=== PATIENT | male | born 1960 | race Caucasian/White ===

== ENCOUNTER → 2018-09-09 11:44 | Outpatient (CLI) | payer OTHER, SELFPAY ==
--- NOTE | 2018-09-09 | DI.RAD.S_ITS ---
PROCEDURE: XR HAND RT MIN 3V INDICATIONS: RT HAND PAIN TECHNIQUE: 3 views of the hand(s) acquired. COMPARISON: None. FINDINGS: Bones: No fractures or dislocations. Carpal bones are normally aligned. No suspicious bony lesions. Diffuse interphalangeal joint degeneration. There is first, second and third mild MCP joint degeneration. Marginal lucencies present at the DIP joints of the index, middle and little finger, as well as the first MCP joint. Possible chondrocalcinosis versus tiny loose body projecting in the ulnocarpal compartment. Soft tissues: No suspicious soft tissue calcifications. IMPRESSION: Diffuse right hand joint degeneration. Mild degenerative changes at the first-third MCP joints Marginal lucencies involving the DIP joints, possibly age-indeterminate erosions versus cystic change. Ulnocarpal compartment chondrocalcinosis versus tiny loose body. Dictated by: Rico Liu M.D. on 09/09/2018 at 14:13 Approved by: Rico Liu M.D. on 09/09/2018 at 14:17
--- NOTE | 2018-09-09 11:50 | DI.RAD.S_ITS ---
PROCEDURE: XR SHOULDER LT MIN 2V INDICATIONS: joint pain TECHNIQUE: 3 views of the shoulder were acquired. COMPARISON: None. FINDINGS: Bones: No fractures or dislocations. No suspicious bony lesions. Mild degenerative changes present at the glenohumeral and acromioclavicular joints. Visualized ribs appear intact. Soft tissues: No suspicious soft tissue calcifications. IMPRESSION: Mild degenerative changes. Dictated by: Katherine Solano M.D. on 09/09/2018 at 14:20 Approved by: Katherine Solano M.D. on 09/09/2018 at 14:20
== END ==
PROVIDERS: PCP Student in an Organized Health Care Education/Training Program; Visit Provider Student in an Organized Health Care Education/Training Program
DX: M79.641 Pain in right hand (principal); M19.041 Primary osteoarthritis, right hand; M25.512 Pain in left shoulder; M19.012 Primary osteoarthritis, left shoulder
CPT/HCPCS: 73030; 73130

== ENCOUNTER → 2019-05-22 12:20 | Outpatient (CLI) | payer OTHER, SELFPAY ==
--- NOTE | 2019-05-22 | DI.RAD.S_ITS ---
PROCEDURE: XR LUMBAR SPINE 2-3V INDICATIONS: BACK PAIN,SPRAIN IN HIP TECHNIQUE: 2 views of the lumbar spine were acquired. COMPARISON: None. FINDINGS: Bones: No fracture or focal osseous destruction. Multilevel degenerative endplate sclerosis and spurring. Diffuse facet arthropathy. Straightening of the normal lordotic curvature. Moderate narrowing of the L1-L2, L2-L3, L3-L4 disc spaces. Mild dextrocurvature centered at T12. Soft tissues: Overlying bowel gas pattern is normal. No suspicious soft tissue calcifications. IMPRESSION: Multilevel moderate lower lumbar spondylosis and diffuse facet arthropathy. Mild thoracolumbar dextrocurvature. Dictated by: Rico Liu M.D. on 05/22/2019 at 13:49 Approved by: Rico Liu M.D. on 05/22/2019 at 13:51
== END ==
PROVIDERS: PCP Student in an Organized Health Care Education/Training Program; Visit Provider Chiropractor
DX: M54.6 Pain in thoracic spine (principal); S73.101A Unspecified sprain of right hip, initial encounter; M99.03 Segmental and somatic dysfunction of lumbar region; M47.816 Spondylosis without myelopathy or radiculopathy, lumbar region
CPT/HCPCS: 72100